=== PATIENT | female | born 1970 | race Caucasian/White ===

== ENCOUNTER 2021-03-20 20:00 | Emergency (ER) | payer MEDICARE ==
--- NOTE | 2021-03-20 20:21 | EDM.PDOC ---
ED HPI GENERAL MEDICAL PROBLEM - General Stated Complaint: EARS Time Seen by Provider: 03/20/21 20:15 Source of Information: Reports: Patient History Limitations: Reports: No Limitations - History of Present Illness INITIAL COMMENTS - FREE TEXT/NARRATIVE: pt noticed multiple blisters/ sores at ears and tongue last night, report some very mild associated discomfort , denies Hx of similar problems or any Hx of significant morbidities or any other associated sx or concerns. ED ROS GENERAL - Review of Systems Review Of Systems: Comprehensive ROS is negative, except as noted in HPI. 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 ) Head: Atraumatic, Normocephalic Neck: Normal Inspection, Supple Respiratory/Chest: No Respiratory Distress, Lungs Clear, Normal Breath Sounds Cardiovascular: Normal Peripheral Pulses, Regular Rate, Rhythm GI/Abdominal: Normal Bowel Sounds, Soft, Non-Tender Back Exam: Normal Inspection Extremities: Normal Inspection, Normal Range of Motion Neurological: Alert, Oriented, CN II-XII Intact Skin Exam: Warm Course - Vital Signs Text/Narrative:: pt has cancer sores , this seems immunological , suoopotive mng along with medrol pack, f/u with PCP in 1 week. Departure - Departure Time of Disposition: 20:29 Disposition: Home, Self-Care 01 Clinical Impression: Canker sore - Discharge Information
[2021-03-20] MEDS ORDERED: Lidocaine 2% Viscous Solution 15 ML Cup PO ONE (21:24)
== END 2021-03-20 21:30 | disposition home or self-care (01) ==
LOC: FB.ED 20:00
DX: K12.0 Recurrent oral aphthae (principal)
CPT/HCPCS: 99282; A9270

== ENCOUNTER 2021-09-20 02:28 | Emergency (ER) | payer MEDICARE, MEDICAID ==
--- NOTE | 2021-09-20 02:43 | EDM.PDOC ---
ED HPI GENERAL MEDICAL PROBLEM - General Stated Complaint: FALL Time Seen by Provider: 09/20/21 02:38 Source of Information: Reports: Patient, EMS History Limitations: Reports: Altered Mental Status (Evaluation does appear to be under the influence of some substance with some choreiform type movements. She but admits to using methamphetamine today.) - History of Present Illness INITIAL COMMENTS - FREE TEXT/NARRATIVE: 51-year-old female who presents to the emergency department via ambulance from her home after found on her floor decreased responsiveness and not responding appropriately with some shaking of her arms. The roommate and heard a loud noise in the patient's room like something had fallen and she went in to investigate and found the patient on the floor as mentioned above. EMS was called and by the time that EMS arrived, the patient was sitting up and was responding mostly appropriately to the EMS personnel but she still had some shaking of her arms and legs and choreiform type movements. The patient does report that she fell but she can't really give an accounting of how or why this happened. When I bring up my concern that she may have been using some intoxicating substance and that I am concerned that she has used methamphetamine, she states that she "did take a hit earlier but I don't do that stuff now." She seems to tell me that she has not used methamphetamines for quite some time. She does report that when she fell she hit the back of her head and she has some occipital headache and some neck pain. She is rating the pain as a 9/10.. She denies any nausea or vomiting. She states that she has had a chronic cough for some time but no nasal congestion. She does allude to the fact that there is a lot of "stress in her house right now" and that she and her roommate are "not getting along". She states that they did have an argument earlier and it was according to the patient nonphysical but verbal and a lot of yelling. She denies any arm or leg weakness. She denies any suicidal or homicidal ideation. There are no other associated signs or symptoms. There are no other modifying factors. 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 (see below) (Nothing.) head Pain Score (Numeric/FACES): 9 - Related Data Allergies Allergy/AdvReac Type Severity Reaction Status Date / Time Penicillins Allergy Rash Verified 09/20/21 02:43 Home Meds: Home Meds Sertraline HCl [Zoloft] 100 mg PO BID 03/20/21 [History] estradioL [Estradiol] 2 mg PO DAILY 03/20/21 [History] traZODone 100 mg PO BEDTIME 03/20/21 [History] Acyclovir [Zovirax] 800 mg PO DAILY 09/20/21 [History] SUMAtriptan succinate [Imitrex] 100 mg PO ASDIRECTED PRN 09/20/21 [History] rOPINIRole [Requip] 1 mg PO BEDTIME 09/20/21 [History] Past Medical History HEENT History: Reports: Other (See Below) Other HEENT History: missing/broken teeth Neurological History: Reports: Brain Injury, Migraines Psychiatric History: Reports: Addiction (Substance abuse), Anxiety, Depression - Past Surgical History Female Surgical History: Reports: Hysterectomy Neurological Surgical History: Reports: Other (See Below) (Neck surgery of some kind. She states that they burned nerves.) Social & Family History - Tobacco Use Tobacco Use Status *Q: Current Every Day Tobacco User - Caffeine Use Caffeine Use: Reports: Coffee, Soda - Alcohol Use Alcohol Use History: Yes Alcohol Use Frequency: Daily - Recreational Drug Use Recreational Drug Use: Yes Recreational Drug Type: Reports: Marijuana/Hashish, Methamphetamine - Living Situation & Occupation Social History Comment: Lives with a roommate. ED ROS GENERAL - Review of Systems Review Of Systems: See Below Constitutional: Denies: Fever, Chills, Diaphoresis HEENT: Denies: Throat Pain, Throat Swelling Respiratory: Reports: Cough (Chronic). Denies: Shortness of Breath Cardiovascular: Denies: Chest Pain, Dyspnea on Exertion GI/Abdominal: Denies: Nausea, Vomiting : Denies: Dysuria, Hematuria Musculoskeletal: Reports: Neck Pain. Denies: Back Pain Skin: Denies: Rash, Wound Neurological: Reports: Headache Psychiatric: Reports: Anxiety Hematologic/Lymphatic: Denies: Easy Bleeding, Easy Bruising ED EXAM, GENERAL - Physical Exam Exam: See Below Exam Limited By: No Limitations General Appearance: Alert, WD/WN, Mild Distress, Other (Choreiform movements. She is awake and alert but is definitely altered in her level of responsiveness.) Eye Exam: Bilateral Eye: EOMI, Normal Inspection, PERRL Ears: Normal External Exam, Hearing Grossly Normal Ear Exam: Bilateral Ear: Auricle Normal Nose: Normal Inspection, Normal Mucosa, No Blood Throat/Mouth: Normal Voice, No Airway Compromise, Other (Dry mucous membranes) Head: Other (Occipital scalp tenderness and some swelling. No crepitus.) Neck: Tender Midline. No: Lymphadenopathy (L) Respiratory/Chest: No Respiratory Distress, Lungs Clear, Normal Breath Sounds Cardiovascular: Normal Peripheral Pulses, Regular Rate, Rhythm, No Murmur Peripheral Pulses: 2+: Radial (L), Radial (R), Dorsalis Pedis (L), Dorsalis Pedis (R) GI/Abdominal: Normal Bowel Sounds, Soft, Non-Tender, No Mass Extremities: Normal Inspection, Normal Range of Motion, No Pedal Edema Neurological: Alert, CN II-XII Intact, No Motor/Sensory Deficits, Slow to Respond (Appears easily diverted), Other (Choreiform movements) Psychiatric: Flat Affect Skin Exam: Warm, Dry, Intact, Normal Color, No Rash #1 Interpretation EKG Date: 09/20/21 Time: 03:06 Rhythm: NSR Rate (Beats/Min): 61 [place]: Normal P-Wave: Enlarged QRS: Normal ST-T: Other (Poor R-wave progression.) QT: Normal Comparison: NA - No Prior EKG Course - Vital Signs Last Recorded V/S: Last Vital Signs Temp 36.6 C 09/20/21 02:49 Pulse 94 09/20/21 02:49 Resp 14 09/20/21 02:49 BP 135/115 H 09/20/21 02:49 Pulse Ox 94 L 09/20/21 02:49 - Orders/Labs/Meds Orders: Active Orders 24 hr Category Date Time Status Cervical Spine wo Cont [CT] Stat Exams 09/20/21 02:52 Ordered Head wo Cont [CT] Stat Exams 09/20/21 02:52 Ordered Sodium Chloride 0.9% [Saline Flush] Med 09/20/21 02:52 Active 10 ml FLUSH ASDIRECTED PRN Peripheral IV Insertion Adult [OM.PC] Routine Oth 09/20/21 02:52 Ordered EKG 12 Lead [EK] Routine Ther 09/20/21 02:52 Ordered Medication Orders Sodium Chloride (Sodium Chloride 0.9% 10 Ml Syringe) 10 ml FLUSH ASDIRECTED PRN PRN Reason: Keep Vein Open Labs: Laboratory Tests 09/20/21 09/20/21 09/20/21 Range/Units 03:00 03:00 03:13 WBC 8.3 (3.0-10.3) x10-3/uL RBC 3.95 (3.60-5.20) x10(6)uL Hgb 13.3 (11.4-15.5) g/dL Hct 39.8 (34.2-48.2) % MCV 100.6 H (76.7-100.5) fL MCH 33.7 (23.9-33.9) pg MCHC 33.5 (31.9-34.8) g/dL RDW 12.6 (12.3-16.5) % Plt Count 182 (151-488) x10(3)uL MPV 8.0 (7.1-12.4) fL Neut % (Auto) 67.7 (30.8-76.2) % Lymph % (Auto) 23.3 (18.4-52.1) % [place] % (Auto) 8.0 (4.4-15.7) % Eos % (Auto) 0.7 (0.6-8.1) % Baso % (Auto) 0.3 (0.2-1.5) % Neut # (Auto) 5.6 (1.5-6.3) x10-3/uL Lymph # (Auto) 1.9 (1.0-4.4) x10-3/uL [place] # (Auto) 0.7 (0.3-1.0) x10-3/uL Eos # (Auto) 0.1 (0.0-0.8) x10-3/uL Baso # (Auto) 0.0 (0.0-0.1) x10-3/uL Sodium (135-145) mmol/L Potassium (3.5-5.3) mmol/L Chloride (100-110) mmol/L Carbon Dioxide (21-32) mmol/L BUN (7-18) mg/dL Creatinine (0.55-1.02) mg/dL Est Cr Clr Drug Dosing mL/min Estimated GFR (MDRD) (>60) BUN/Creatinine Ratio (9-20) Glucose (80-116) mg/dL Calcium (8.6-10.2) mg/dL Magnesium (1.8-2.5) mg/dL Total Bilirubin (0.1-1.3) mg/dL AST (5-25) IU/L ALT (12-36) U/L Alkaline Phosphatase (56-112) IU/L Total Protein (6.0-8.0) g/dL Albumin (3.5-5.2) g/dL Globulin g/dL Albumin/Globulin Ratio Urine Color Yellow (YELLOW) Urine Appearance Clear (CLEAR) Urine pH 6.0 (5.0-6.5) Ur Specific [place] 1.030 H (1.010-1.025) Urine Protein Trace (NEGATIVE) mg/dL Urine Glucose (UA) Normal (NORMAL) mg/dL Urine Ketones Negative (NEGATIVE) mg/dL Urine Occult Blood Negative (NEGATIVE) Urine Nitrite Negative (NEGATIVE) Urine Bilirubin Negative (NEGATIVE) Urine Urobilinogen Normal (NEGATIVE) mg/dL Ur Leukocyte Esterase Negative (NEGATIVE) Urine RBC 0-5 (0-5) Urine WBC 0-5 (0-5) Ur Squamous Epith Cells Few H (NS,R,O) Urine Bacteria Few H (NS) Urine Opiates Screen Negative (NEGATIVE) Ur Buprenorphine Scrn Negative (NEGATIVE) Ur Oxycodone Screen Negative (NEGATIVE) Urine Methadone Screen Negative (NEGATIVE) Ur Propoxyphene Screen Negative (NEGATIVE) Ur Barbiturates Screen Negative (NEGATIVE) Ur Tricyclics Screen Negative (NEGATIVE) Ur Phencyclidine Scrn Negative (NEGATIVE) Ur Amphetamine Screen Negative (NEGATIVE) U Methamphetamines Scrn Negative (NEGATIVE) U Benzodiazepines Scrn Negative (NEGATIVE) U Cocaine Metab Screen Negative (NEGATIVE) U Marijuana (THC) Screen Positive H (NEGATIVE) Ethyl Alcohol (<0.03) % 09/20/21 09/20/21 Range/Units 03:13 03:13 WBC (3.0-10.3) x10-3/uL RBC (3.60-5.20) x10(6)uL Hgb (11.4-15.5) g/dL Hct (34.2-48.2) % MCV (76.7-100.5) fL MCH (23.9-33.9) pg MCHC (31.9-34.8) g/dL RDW (12.3-16.5) % Plt Count (151-488) x10(3)uL MPV (7.1-12.4) fL Neut % (Auto) (30.8-76.2) % Lymph % (Auto) (18.4-52.1) % [place] % (Auto) (4.4-15.7) % Eos % (Auto) (0.6-8.1) % Baso % (Auto) (0.2-1.5) % Neut # (Auto) (1.5-6.3) x10-3/uL Lymph # (Auto) (1.0-4.4) x10-3/uL [place] # (Auto) (0.3-1.0) x10-3/uL Eos # (Auto) (0.0-0.8) x10-3/uL Baso # (Auto) (0.0-0.1) x10-3/uL Sodium 139 (135-145) mmol/L Potassium 4.1 (3.5-5.3) mmol/L Chloride 103 (100-110) mmol/L Carbon Dioxide 30 (21-32) mmol/L BUN 16 (7-18) mg/dL Creatinine 1.0 (0.55-1.02) mg/dL Est Cr Clr Drug Dosing 51.71 mL/min Estimated GFR (MDRD) 58 L (>60) BUN/Creatinine Ratio 16.0 (9-20) Glucose 109 (80-116) mg/dL Calcium 8.3 L (8.6-10.2) mg/dL Magnesium 2.2 (1.8-2.5) mg/dL Total Bilirubin 0.4 (0.1-1.3) mg/dL AST 19 (5-25) IU/L ALT 16 (12-36) U/L Alkaline Phosphatase 92 (56-112) IU/L Total Protein 6.5 (6.0-8.0) g/dL Albumin 3.6 (3.5-5.2) g/dL Globulin 2.9 g/dL Albumin/Globulin Ratio 1.2 Urine Color (YELLOW) Urine Appearance (CLEAR) Urine pH (5.0-6.5) Ur Specific [place] (1.010-1.025) Urine Protein (NEGATIVE) mg/dL Urine Glucose (UA) (NORMAL) mg/dL Urine Ketones (NEGATIVE) mg/dL Urine Occult Blood (NEGATIVE) Urine Nitrite (NEGATIVE) Urine Bilirubin (NEGATIVE) Urine Urobilinogen (NEGATIVE) mg/dL Ur Leukocyte Esterase (NEGATIVE) Urine RBC (0-5) Urine WBC (0-5) Ur Squamous Epith Cells (NS,R,O) Urine Bacteria (NS) Urine Opiates Screen (NEGATIVE) Ur Buprenorphine Scrn (NEGATIVE) Ur Oxycodone Screen (NEGATIVE) Urine Methadone Screen (NEGATIVE) Ur Propoxyphene Screen (NEGATIVE) Ur Barbiturates Screen (NEGATIVE) Ur Tricyclics Screen (NEGATIVE) Ur Phencyclidine Scrn (NEGATIVE) Ur Amphetamine Screen (NEGATIVE) U Methamphetamines Scrn (NEGATIVE) U Benzodiazepines Scrn (NEGATIVE) U Cocaine Metab Screen (NEGATIVE) U Marijuana (THC) Screen (NEGATIVE) Ethyl Alcohol < 0.03 (<0.03) % Meds: Medications Generic Name Dose Route Start Last Admin Trade Name Freq PRN Reason Stop Dose Admin Sodium Chloride 10 ml 09/20/21 02:52 Sodium Chloride 0.9% 10 Ml Syringe FLUSH ASDIRECTED PRN Keep Vein Open Discontinued Medications Generic Name Dose Route Start Last Admin Trade Name Freq PRN Reason Stop Dose Admin Sodium Chloride 1,000 mls @ 999 mls/hr 09/20/21 03:03 09/20/21 03:12 Normal Saline IV 09/20/21 04:03 999 mls/hr .BOLUS ONE Administration - Re-Assessments/Exams Free Text/Narrative Re-Assessment/Exam: 09/20/21 03:50: White blood cell count is 8.3. Hemoglobin is 13.3. Platelet count is normal. Sodium is 139. Potassium is 4.1. Bicarbonate is 30. BUN is 16 and creatinine is 1.0. Glucose is normal. LFTs are normal. Blood alcohol was negative. Urine tox was positive for THC. Urinalysis is still pending at this point. Patient is still having some choreiform type she is over getting CT scans of her head and cervical spine. She remained calm and cooperative. She remained hemodynamically stable. She is receiving normal saline 1 L as a bolus. 09/20/21 06:15: The CT scan of her head and the cervical spine were read as negative by the [facility] radiologist. She was asleep and when she awakened she was conversing normally. The shaking and choreiform movements had resolved. He was able to ambulate in the emergency department without any problems. I am unsure what happened to cause her to have the fall and the altered mental status. She tells me that she did have a seizure as a child and she does have a history of traumatic brain injury. This could've been a seizure. But there was no clear history of seizure activity other than the fall her movements. She appears to be stable for discharge at this point. I have strongly encouraged her to follow-up with her primary provider. Departure - Departure Time of Disposition: 06:20 Disposition: Home, Self-Care 01 Condition: Good (Improved) Clinical Impression: Transient alteration of awareness, Choreiform movements, History of drug abuse - Discharge Information Referrals: Sanjeev Cordova PA [Primary Care Provider] - Additional Instructions: All of your blood tests and urine tests were reassuringly normal. The CT scans of your head and neck showed no fractures and no bleeding. I am unsure why he had the shaking episode and the fall at your home tonight. As we discussed, this could have been a seizure. But in any event, this has seemed to resolve and you appear to be back to baseline. I strongly recommend the use stop using any illicit drugs. You should also follow-up with your primary provider this week for recheck. Increase your fluid intake. Back to the emergency department for severe headache, severe weakness, vomiting, fever, recurrent falls or shaking episodes or any other concerning signs or symptoms. Sepsis Event Note (ED) - Focused Exam Vital Signs: Vital Signs Temp Pulse Resp BP Pulse Ox 09/20/21 02:49 36.6 C 94 14 135/115 H 94 L - My Orders Last 24 Hours: My Active Orders 09/20/21 02:52 Cervical Spine wo Cont [CT] Stat Head wo Cont [CT] Stat Sodium Chloride 0.9% [Saline Flush] 10 ml FLUSH ASDIRECTED PRN Peripheral IV Insertion Adult [OM.PC] Routine EKG 12 Lead [EK] Routine - Assessment/Plan Last 24 Hours: My Active Orders 09/20/21 02:52 Cervical Spine wo Cont [CT] Stat Head wo Cont [CT] Stat Sodium Chloride 0.9% [Saline Flush] 10 ml FLUSH ASDIRECTED PRN Peripheral IV Insertion Adult [OM.PC] Routine EKG 12 Lead [EK] Routine
[2021-09-20] MEDS ORDERED: Sodium Chloride 0.9% 10 ML Syringe FLUSH PRN (02:52)
[2021-09-20] MEDS ORDERED: Sodium Chloride 0.9% 1,000 ML IV ONE (03:03)
== END 2021-09-20 06:20 | disposition home or self-care (01) ==
LOC: FB.ED 02:28
DX: R40.4 Transient alteration of awareness (principal); G25.9 Extrapyramidal and movement disorder, unspecified; F19.90 Other psychoactive substance use, unspecified, uncomplicated; Z88.0 Allergy status to penicillin; Z72.0 Tobacco use
CPT/HCPCS: 36415; 70450; 72125; 80053; 80307; 81001; 83735; 85025; 93005; 99285; J7030

== ENCOUNTER 2021-11-06 12:09 | Emergency (ER) | payer MEDICARE, MEDICAID ==
[2021-11-06] MEDS ORDERED: hydrOXYzine HCl 50 MG/ML SDV IM ONE (13:27)
[2021-11-06] MEDS ORDERED: Acetaminophen 500 MG Tab PO ONE (13:56)
[2021-11-06] MEDS ORDERED: Nicotine Polacrilex 2 MG Gum CHEW ONE (15:41)
== END 2021-11-06 16:53 | disposition other institution (70) ==
LOC: FB.ED 12:09
DX: F32.A Depression, unspecified (principal); F41.9 Anxiety disorder, unspecified; F15.10 Other stimulant abuse, uncomplicated; F10.10 Alcohol abuse, uncomplicated; Z88.0 Allergy status to penicillin; Z72.0 Tobacco use; Z20.822 Contact with and (suspected) exposure to COVID-19; Y90.5 Blood alcohol level of 100-119 mg/100 ml
CPT/HCPCS: 36415; 80053; 80307; 83735; 84484; 85025; 93005; 96372; 99284; A9270; J3410; U0002